=== PATIENT | female | born 1955 | race Caucasian/White ===

== ENCOUNTER 2019-03-30 08:29 | Outpatient (CLI) | payer MEDICARE, OTHER ==
[~2019-03-30 08:29] MED LIST: IBUP-1902 PO; LEVO750T26 PO; LEVO750T6 PO; METR500T PO; ONDA4TAB13 PO; PSYL3.4P8 PO
[2019-03-30] MEDS ORDERED: ERGO500017 PO (09:09)
[2019-03-30] MEDS ORDERED: LEVO88TA4 PO (09:09)
[2019-03-30] MEDS ORDERED: BIFI4CAP PO (09:09)
[2019-03-30] MEDS ORDERED: METF500T12 PO (09:09)
[2019-03-30 09:44] LABS: ALANINE AMINOTRANSFERASE 23 U/L (12-78); ALBUMIN 3.6 g/dL (3.4-5.0); ANION GAP 8 mmol/L (5-15); CALCIUM 8.5 mg/dL (8.5-10.1); CHLORIDE 107 mmol/L (98-107); CREATININE 0.77 mg/dL (0.55-1.02)
[2019-03-30 09:49] LABS: ALKALINE PHOSPHATASE 110 U/L (45-117); BILIRUBIN,TOTAL 0.4 mg/dL (0.2-1.0); TOTAL PROTEIN 7.2 g/dL (6.4-8.2)
== END 2019-03-30 23:59 | disposition home or self-care (01) ==
LOC: STAR 08:29
PROVIDERS: ATTEND Surgery
DX: Z01.818 Encounter for other preprocedural examination (principal); C50.912 Malignant neoplasm of unspecified site of left female breast
CPT/HCPCS: 36415; 80053; 93005

== ENCOUNTER 2019-04-05 07:55 | Day surgery (SDC) | payer MEDICARE ==
[~2019-04-05] VITALS: Ht 165.1 cm; Wt 94.1 kg
[~2019-04-05 07:55] MED LIST changes: +BIFI4CAP PO; +BUPIVACAINE/PF 0.5% ONE; +ERGO500017 PO; +ISOSULFAN BLUE 10 MG/ML, 5ML IV ONE; +LEVO88TA4 PO; +METF500T12 PO
[2019-04-05] MEDS ORDERED: SCOPOLAMINE PATCH, 1.5MG PATCH.TD72 TD ONE (10:30)
[2019-04-05] MEDS ORDERED: ACETAMINOPHEN 500 MG TABLET PO ONE (10:30)
[2019-04-05] MEDS ORDERED: LACTATED RINGERS 1,000 ML IV SCH (10:31)
[2019-04-05] MEDS ORDERED: LIDOCAINE-MPF 1%, 2ML ONE (10:56)
[2019-04-05 10:57] VITALS: BP 130/88
[2019-04-05] MEDS ORDERED: MIDAZOLAM 1 MG/ML, 2ML ONE (11:11)
[2019-04-05] MEDS ORDERED: FENTANYL PF 250 MCG/5ML ONE (11:12)
[2019-04-05] MEDS ORDERED: LIDOCAINE-MPF 1%, 2ML INFIL ONE (11:30)
[2019-04-05] MEDS ORDERED: LORazepam 2 MG/ML, 1ML IVPush PRN (12:30)
[2019-04-05] MEDS ORDERED: ONDANSETRON 2MG/ML, 2ML IV PRN (12:30)
[2019-04-05] MEDS ORDERED: ONDANSETRON ODT 8 MG PO PRN (12:30)
[2019-04-05] MEDS ORDERED: PROMETHAZINE 25 MG SUPP PR PRN (12:30)
[2019-04-05] MEDS ORDERED: PROMETHAZINE 25 MG/ML, 1ML IV PRN (12:30)
[2019-04-05] MEDS ORDERED: EPINEPHRINE 1 MG/ML, 1ML INFIL ONE (12:46)
[2019-04-05] MEDS ORDERED: CEFAZOLIN 1,000 MG ONE (12:59)
[2019-04-05] MEDS ORDERED: ONDANSETRON 2MG/ML, 2ML ONE (12:59)
[2019-04-05] MEDS ORDERED: GLYCOPYRROLATE 0.2MG/1ML, 5ML ONE (12:59)
[2019-04-05] MEDS ORDERED: ROCURONIUM 10MG/ML,5ML ONE (12:59)
[2019-04-05] MEDS ORDERED: PROPOFOL 10 MG/ML, 20ML ONE (12:59)
[2019-04-05] MEDS ORDERED: SUCCINYLCHOLINE 20 MG/ML, 10ML ONE (12:59)
[2019-04-05] MEDS ORDERED: DEXAMETHASONE 4 MG/ML, 1ML ONE (12:59)
[2019-04-05] MEDS ORDERED: NEOSTIGMINE 1 MG/ML, 10ML ONE (12:59)
[2019-04-05] MEDS ORDERED: SUGAMMADEX 200 MG/2 ML IVPush ONE (13:28)
[2019-04-05] MEDS ORDERED: OXYcodone 5 MG/5 ML ORAL.SOL UDC ONE ×2 (13:47→14:59)
[2019-04-05] MEDS ORDERED: FENTANYL PF 100 MCG/2ML ONE (13:47)
[2019-04-05] MEDS: OXYcodone 5 MG/5 ML ORAL.SOL UDC PO PRN ×2 (13:48→15:01)
[2019-04-05] MEDS: FENTANYL PF 100 MCG/2ML IV PRN ×4 (13:51→14:18)
[2019-04-05] MEDS ORDERED: HYDROmorphone 1 MG/ML, 1ML INJ ONE (14:25)
[2019-04-05] MEDS: HYDROmorphone 1 MG/ML, 1ML INJ IVPush PRN ×2 (14:27→14:36)
[2019-04-05] MEDS ORDERED: DIAZEPAM 5 MG TABLET ONE (14:41)
[2019-04-05] MEDS ORDERED: DIAZEPAM 5 MG TABLET PO ONE (15:00)
== END 2019-04-05 17:00 | disposition home or self-care (01) ==
LOC: CFH 07:55 → EDSTATUS 12:00 → OUT 17:00
PROVIDERS: ATTEND Surgery
DX: C50.912 Malignant neoplasm of unspecified site of left female breast (principal); R59.1 Generalized enlarged lymph nodes; E03.9 Hypothyroidism, unspecified; E11.9 Type 2 diabetes mellitus without complications; E66.9 Obesity, unspecified; Z68.34 Body mass index [BMI] 34.0-34.9, adult; Z85.828 Personal history of other malignant neoplasm of skin; Z87.891 Personal history of nicotine dependence; Z72.89 Other problems related to lifestyle; Z88.1 Allergy status to other antibiotic agents; Z88.8 Allergy status to other drugs, medicaments and biological substances; Z79.899 Other long term (current) drug therapy; Z79.84 Long term (current) use of oral hypoglycemic drugs
CPT/HCPCS: 19285; 19301; 38525; 38792; 76098; 77065; 82962; 88305; 88307; 88329; 88333; A9541; J0171; J0690; J1100; J1170; J2250; J2405; J2704; J2710; J3010; J7120; J0330

== ENCOUNTER 2019-04-27 07:22 | Outpatient (CLI) | payer MEDICARE ==
[~2019-04-27 07:22] MED LIST changes: -BUPIVACAINE/PF 0.5% ONE; -ISOSULFAN BLUE 10 MG/ML, 5ML IV ONE
== END 2019-04-27 23:59 | disposition home or self-care (01) ==
LOC: ROC 07:22
PROVIDERS: ATTEND Radiology Radiation Oncology
DX: C50.412 Malignant neoplasm of upper-outer quadrant of left female breast (principal); E03.9 Hypothyroidism, unspecified
CPT/HCPCS: 99214; G0463

== ENCOUNTER 2019-07-11 08:30 | Outpatient (CLI) | payer MEDICARE | END 2019-07-11 23:59 | disposition home or self-care (01) | LOC: ROC 08:30 | PROVIDERS: ATTEND Radiology Radiation Oncology | DX: Z08 Encounter for follow-up examination after completed treatment for malignant neoplasm (principal); C50.412 Malignant neoplasm of upper-outer quadrant of left female breast; E03.9 Hypothyroidism, unspecified; Z17.0 Estrogen receptor positive status [ER+] | CPT/HCPCS: 99213; G0463 ==